=== PATIENT | male | born 1995 | race African-American/Black ===

== ENCOUNTER 2023-11-15 08:31 | Emergency (ER) | payer SELFPAY ==
[2023-11-15] MEDS ORDERED: HYDROcodone/Acetaminophen 5/325 mg Tablet ONE (09:29)
== END 2023-11-15 11:50 | disposition home or self-care (01) ==
LOC: ERS 08:31
DX: L08.9 Local infection of the skin and subcutaneous tissue, unspecified (principal); F17.210 Nicotine dependence, cigarettes, uncomplicated
CPT/HCPCS: 99282